=== PATIENT | male | born 1955 | race African-American/Black ===

== ENCOUNTER 2018-06-28 09:13 | Emergency (ER) | payer OTHER ==
[~2018-06-28] VITALS: Ht 180.3 cm; Wt 111.1 kg
[~2018-06-28 09:13] MED LIST: IBUPROFEN600 MG ORAL; NORCO 10-325 T1 EACH ORAL
[2018-06-28] MEDS ORDERED: UNOBMED (09:25)
--- NOTE | 2018-06-28 09:30 | NUR ---
ED Nurse Note: Pt came in from home due to coughing x 3-4 days, causing chest tightness. Pt states hes unable to sleep at night due to coughing. SAT 99% RA yesica. AOx4, VSS. Will cont to monitor.
[2018-06-28] MEDS ORDERED: Albuterol ud Inhalation HHN ONE (09:45)
[2018-06-28 09:54] VITALS: BP 134/79
[2018-06-28 10:29] LABS: BASOPHILS % (AUTO) 2.1 % (0.0-2.0); EOSINOPHILS % (AUTO) 1.9 % (0.0-3.0); HEMATOCRIT 40.4 % (42.0-52.0); HEMOGLOBIN 13.6 G/DL (14.2-18.0); LYMPHOCYTES % (AUTO) 22.4 % (20.0-45.0); MEAN CORPUSCULAR VOLUME 92 FL (80-99); NEUTROPHILS % (AUTO) 59.6 % (45.0-75.0); PLATELET COUNT 227 K/UL (150-450); RED BLOOD COUNT 4.41 M/UL (4.70-6.10); RED CELL DISTRIBUTION WIDTH 11.7 % (11.6-14.8)
[2018-06-28 10:31] LABS: ANION GAP 9 mmol/L (5-15); BLOOD UREA NITROGEN 12 mg/dL (7-18); CALCIUM 8.5 MG/DL (8.5-10.1); CARBON DIOXIDE 28 MMOL/L (21-32); CHLORIDE 103 MMOL/L (98-107); POTASSIUM 3.7 MMOL/L (3.5-5.1); SODIUM 140 MMOL/L (136-145)
[2018-06-28 10:42] LABS: ALANINE AMINOTRANSFERASE 34 U/L (12-78); ALBUMIN 3.6 G/DL (3.4-5.0); ALBUMIN/GLOBULIN RATIO 0.9 (1.0-2.7); ALKALINE PHOSPHATASE 77 U/L (46-116); ASPARTATE AMINO TRANSFERASE 23 U/L (15-37); BILIRUBIN,TOTAL 1.1 MG/DL (0.2-1.0); CREATINE KINASE 311 U/L (26-308)
--- NOTE | 2018-06-28 10:47 | Diagnostic Imaging Report ---
Indication: Chest pain Technique: One view of the chest Comparison: none Findings: Body habitus limits evaluation. The heart is enlarged. There are equivocal mild interstitial congestive changes. There is evidence of prior median sternotomy Impression: Cardiomegaly. Equivocal mild interstitial congestion-correlate with clinical findings
[2018-06-28 10:50] LABS: BILIRUBIN,DIRECT 0.2 MG/DL (0.0-0.3)
[2018-06-28] MEDS ORDERED: guaiFENesin w/Codeine 5ml Liq ud ORAL STA (11:13)
[2018-06-28 12:05] VITALS: BP 129/74
--- NOTE | 2018-06-28 12:35 | Emergency Room Report ---
History of Present Illness General Chief Complaint: Upper Respiratory Illness Source: Patient Present Illness HPI Patient presents with a cough for at least 2 weeks but has worsened over 3 days. He has chest pain with the cough. At rest he has no pain. He also has no chest pain with exertion. The pain is rated 8/10 when he does cough and is bilateral at the lower parts of his chest. He is felt feverish but there is no documented fever. He denies any edema or calf pain. There is no nausea, vomiting or diarrhea. He denies skin rashes. The cough keeps him awake at night. Patient has heart disease and had triple bypass several years ago. He takes medication for high blood pressure. Allergies: Coded Allergies: No Known Allergies (Unverified , 02/07/16) Patient History Past Medical History: see triage record Past Surgical History: CABG Social History: Denies: smoking Social History Narrative Here with daughter Reviewed Nursing Documentation: PMH: Agreed; PSxH: Agreed Nursing Documentation-PMH Past Medical History: No History, Except For Hx Cardiac Problems: Yes - triple bypass 2014 high cholesterol Hx Hypertension: Yes Review of Systems All Other Systems: negative except mentioned in HPI Physical Exam Vital Signs Date Time Temp Pulse Resp B/P (MAP) Pulse Ox O2 Delivery O2 Flow Rate FiO2 06/28/18 09:23 98.8 93 18 150/87 96 Room Air 06/28/18 09:48 21 Sp02 EP Interpretation: reviewed, normal General Appearance: well appearing, no apparent distress, GCS 15 Head: normocephalic Eyes: bilateral eye normal inspection, bilateral eye PERRL ENT: hearing grossly normal, moist mucus membranes, pharyngeal erythema Neck: supple Respiratory: lungs clear, normal breath sounds, other - Some lower chest wall tenderness Cardiovascular #1: regular rate, rhythm, no edema Cardiovascular #2: 2+ radial (R) Gastrointestinal: normal inspection, normal bowel sounds, non tender, no mass, non-distended Musculoskeletal: back normal, gait/station normal, normal range of motion, no calf tenderness Neurologic: alert, oriented x3, grossly normal Psychiatric: mood/affect normal Skin: normal inspection, warm/dry Medical Decision Making Diagnostic Impression: Primary Impression: Chest pain Qualified Codes: R07.89 - Other chest pain Additional Impression: Atypical pneumonia ER Course Patient presents with persistent cough this keeping her awake at night and also associated with chest pain. Differential includes acute coronary syndrome, pleurisy, chest wall strain, costochondritis, pneumothorax, bronchospasm, bronchitis, pertussis, pulmonary embolus amongst others. Based on physical examination and vital signs pulmonary embolus less likely. Evaluation will be with EKG, chest x-ray and labs. The patient will be treated with albuterol. He will also be given Tylenol. EKG without injury. Chest x-ray no infiltrates. Labs with normal white count and CMP. Influenza negative. He states the breathing treatment did not help him. Patient still with pleuritic chest pain with coughing. Guaifenesin with codeine is given. In addition the patient is insisting on antibiotics at this time. He believes that a azithromycin will help him. Due to the possibility of this being pertussis azithromycin is ordered. Patient is stable for outpatient observation and treatment. Laboratory Tests Test 06/28/18 09:50 06/28/18 12:40 White Blood Count 6.0 K/UL (4.8-10.8) Red Blood Count 4.41 M/UL (4.70-6.10) L Hemoglobin 13.6 G/DL (14.2-18.0) L Hematocrit 40.4 % (42.0-52.0) L Mean Corpuscular Volume 92 FL (80-99) Mean Corpuscular Hemoglobin 30.8 PG (27.0-31.0) Mean Corpuscular Hemoglobin Concent 33.6 G/DL (32.0-36.0) Red Cell Distribution Width 11.7 % (11.6-14.8) Platelet Count 227 K/UL (150-450) Mean Platelet Volume 6.1 FL (6.5-10.1) L Neutrophils (%) (Auto) 59.6 % (45.0-75.0) Lymphocytes (%) (Auto) 22.4 % (20.0-45.0) Monocytes (%) (Auto) 14.0 % (1.0-10.0) H Eosinophils (%) (Auto) 1.9 % (0.0-3.0) Basophils (%) (Auto) 2.1 % (0.0-2.0) H Prothrombin Time 11.0 SEC (9.30-11.50) Prothrombin Time INR 1.0 (0.9-1.1) PTT 28 SEC (23-33) Sodium Level 140 MMOL/L (136-145) Potassium Level 3.7 MMOL/L (3.5-5.1) Chloride Level 103 MMOL/L (98-107) Carbon Dioxide Level 28 MMOL/L (21-32) Anion Gap 9 mmol/L (5-15) Blood Urea Nitrogen 12 mg/dL (7-18) Creatinine 1.0 MG/DL (0.55-1.30) Estimate Glomerular Filtration Rate > 60 mL/min (>60) Glucose Level 128 MG/DL (74-106) H Calcium Level 8.5 MG/DL (8.5-10.1) Total Bilirubin 1.1 MG/DL (0.2-1.0) H Direct Bilirubin 0.2 MG/DL (0.0-0.3) Aspartate Amino Transferase (AST) 23 U/L (15-37) Alanine Aminotransferase (ALT) 34 U/L (12-78) Alkaline Phosphatase 77 U/L (46-116) Total Creatine Kinase 311 U/L (26-308) H Troponin I 0.003 ng/mL (0.000-0.056) Total Protein 7.4 G/DL (6.4-8.2) Albumin 3.6 G/DL (3.4-5.0) Globulin 3.8 g/dL Albumin/Globulin Ratio 0.9 (1.0-2.7) L Urine Color Pale yellow Urine Appearance Clear Urine pH 8 (4.5-8.0) Urine Specific Nichols 1.010 (1.005-1.035) Urine Protein Negative (NEGATIVE) Urine Glucose (UA) Negative (NEGATIVE) Urine Ketones Negative (NEGATIVE) Urine Blood 2+ (NEGATIVE) H Urine Nitrite Negative (NEGATIVE) Urine Bilirubin Negative (NEGATIVE) Urine Urobilinogen 1 MG/DL (0.0-1.0) H Urine Leukocyte Esterase Negative (NEGATIVE) Urine RBC 2-4 /HPF (0 - 0) H Urine WBC 0 /HPF (0 - 0) Urine Squamous Epithelial Cells None /LPF (NONE/OCC) Urine Bacteria None /HPF (NONE) Microbiology Date/Time Source Procedure Growth Status 06/28/18 09:50 Nasal Nares Influenza Types A,B Antigen ([facility]) - Final Complete EKG Diagnostic Results Rate: normal Rhythm: NSR ST Segments: no acute changes Rhythm Strip Diag. Results EP Interpretation: yes Rhythm: NSR, no PVC's, no ectopy Chest X-Ray Diagnostic Results Chest X-Ray Diagnostic Results : Chest X-Ray Ordered: Yes # of Views/Limited/Complete: 1 View Indication: Other EP Interpretation: Yes Interpretation: no consolidation, no effusion, no pneumothorax Impression: No acute disease Electronically Signed by: Electronically signed by Curt Morales MD Last Vital Signs Date Time Temp Pulse Resp B/P (MAP) Pulse Ox O2 Delivery O2 Flow Rate FiO2 06/28/18 13:22 98.8 79 15 129/74 100 Room Air 21 Status: improved Disposition: HOME, SELF-CARE Condition: Improved Scripts Acetaminophen (Tylenol) 325 Mg Tablet 650 MG ORAL Q6H PRN for Prn Pain/Headache/Temp > 101, #20 TAB 0 Refills Prov: Curt Morales MD 06/28/18 Guaifenesin/Codeine Phos* (ROBITUSSIN AC*) 118 Ml Liquid 5 ML ORAL Q6H PRN for For Cough, #90 ML 0 Refills Prov: Curt Morales MD 06/28/18 Ibuprofen* (MOTRIN*) 600 Mg Tablet 600 MG ORAL Q6H PRN for For Pain, #20 TAB Prov: Curt Morales MD 06/28/18 Azithromycin* (ZITHROMAX*) 250 Mg Tablet 250 MG ORAL DAILY, #4 TAB Prov: Curt Morales MD 06/28/18 Referrals: [facility],REFERRING (PCP) Curt Morales MD Jun 28, 2018 12:35
[2018-06-28] MEDS ORDERED: ZITHROMAX250 MG ORAL (12:43)
[2018-06-28] MEDS ORDERED: TYLENOL325 MG ORAL (12:43)
[2018-06-28] MEDS ORDERED: GUAIFENESIN-CO118 M1 ORAL (12:43)
[2018-06-28] MEDS ORDERED: IBUPROFEN600 MG ORAL (12:43)
[2018-06-28] MEDS ORDERED: Azithromycin 250mg tab ORAL ONE (12:45)
[2018-06-28 13:17] LABS: APPEARANCE,URINE CLEAR; BILIRUBIN, URINE NEGATIVE (NEGATIVE); COLOR,URINE PALE YELLOW; GLUCOSE, URINE (UA) NEGATIVE (NEGATIVE); KETONES,URINE NEGATIVE (NEGATIVE); LEUKOCYTE ESTERASE ,URINE NEGATIVE (NEGATIVE); NITRITE,URINE NEGATIVE (NEGATIVE); PH,URINE 8 (4.5-8.0); PROTEIN,URINE NEGATIVE (NEGATIVE); UROBILINOGEN,URINE 1 MG/DL (0.0-1.0)
[2018-06-28 13:22] VITALS: BP_SYST 129; BP_SYST 131; BP_DIAS 67; BP_DIAS 74
--- NOTE | 2018-06-28 13:22 | NUR ---
ER DISCHARGE NOTE: Patient is cleared to be discharged per ERMD, pt is aox4, on room air, with stable vital signs. pt was given dc and prescription instructions, pt was able to verbalize understanding, pt id band and iv site removed without complications. pt is able to ambulate with steady gait. pt took all belongings.
== END 2018-06-28 13:22 | disposition home or self-care (01) ==
LOC: EMR 09:41
DX: R07.9 Chest pain, unspecified (principal); J18.9 Pneumonia, unspecified organism; I10 Essential (primary) hypertension; Z95.1 Presence of aortocoronary bypass graft
CPT/HCPCS: 36415; 71045; 80053; 81003; 82248; 82550; 84484; 85025; 85610; 85730; 86710; 93005; 94640; 99284